=== PATIENT | female | born 1955 | race Caucasian/White ===

== ENCOUNTER 2017-06-25 05:24 | Inpatient (IN) ==
[2017-06-25 05:46] VITALS: BMI 29.7
[2017-06-25] MEDS ORDERED: DEXAMETHASONE 4 MG/ML INJECTION IVP ONE (06:00)
[2017-06-25] MEDS ORDERED: ACETAMINOPHEN 500 MG TABLET PO ONE (06:00)
[2017-06-25] MEDS ORDERED: TRANEXAMIC ACID 1,000 MG in NS 100 ML IV ONE ×2 (06:00→07:00)
[2017-06-25] MEDS ORDERED: LIDOCAINE 1% (10mg/ml) 2mL INJ PF SDV ID ONE (06:00)
[2017-06-25] MEDS ORDERED: MELOXICAM 15 MG TABLET PO ONE (06:00)
[2017-06-25] MEDS ORDERED: ONDANSETRON 4 MG/2 ML INJECTION IVP ONE (06:00)
[2017-06-25] MEDS ORDERED: METOCLOPRAMIDE 10mg/2ml INJECTION IVP ONE (06:00)
[2017-06-25] MEDS ORDERED: FAMOTIDINE PB 20 MG/50 ML BAG IV ONE (06:00)
[2017-06-25] MEDS: LR 1,000 ML IV SCH ×2 (06:10→08:47)
[2017-06-25] MEDS: NOZIN NASAL SWAB NAS SCH ×5 (06:14→21:00)
[2017-06-25] MEDS ORDERED: VANCOMYCIN 1,000 MG INJECTION ONE (06:17)
[2017-06-25] MEDS ORDERED: CEFAZOLIN 1 G INJECTION IVP ONE (06:21)
[2017-06-25] MEDS ORDERED: PROPOFOL 500 MG/50 ML VIAL ONE ×2 (06:53→08:11)
--- NOTE | 2017-06-25 07:07 | Anesthesia Preoperative Report ---
Anesthesia Preoperative Record - Date and Time Date: 06/25/17 Preoperative Diagnosis: Lt TKA M17.12 Proposed Procedure: TKA robot NPO Since Date: 06/25/17 NPO Since Time: 06:00 Allergies/Adverse Reactions: Allergies Allergy/AdvReac Type Severity Reaction Status Date / Time Sulfa (Sulfonamide Allergy Intermediate HIVES Verified 06/25/17 05:57 Antibiotics) - Vital Signs Vital Signs: Temperature 97.6 F 06/25/17 05:45 Pulse Rate 58 L 06/25/17 06:20 Respiratory Rate 14 06/25/17 05:45 Blood Pressure 143/83 H 06/25/17 05:45 Pulse Oximetry 95 06/25/17 05:45 Height and Weight: Height 1.69 m Weight 85 kg Body Mass Index 29.7 - Medications Inpatient Medications: Current Medications Lactated Ringer's (Lactated Ringers) 1,000 mls @ 50 mls/hr IV .Q20H [facility] Last Admin: 06/25/17 06:10 Dose: 50 mls/hr Epinephrine HCl 0.25 mg/Bupivacaine HCl 30 ml/Ketorolac Tromethamine 60 mg/ Sodium Chloride 62.25 mls @ 0 mls/hr OPSITE INTRAOP ONE; Per Protocol PRN Reason: Protocol Stop: 06/25/17 08:01 Tranexamic Acid 1,000 mg/ (Sodium Chloride) 110 mls @ 660 mls/hr IV INTRAOP ONE Stop: 06/25/17 07:09 Isopropyl Alcohol (Nozin Nasal Swab) 1 each CHUCHO Q1M [facility] Stop: 06/25/17 14:33 Last Admin: 06/25/17 06:26 Dose: 1 each Sodium Chloride (Iv Flush) 10 - 80 ml IV PRN PRN PRN Reason: [place] Home Medications: Home Medications Medication Instructions Recorded Confirmed Type ergocalciferol (vitamin D2) 50,000 50,000 unit PO DAILY #2 cap 06/02/17 Rx unit capsule Aspirin *EC* [Ecotrin] 1 tab PO 1200 06/11/17 06/24/17 History Atorvastatin Calcium [Atorvastatin 10 mg PO HS 06/11/17 06/25/17 History Calcium] Cartilage/Collagen/Bor/Hyalur 1 each PO DAILY 06/11/17 06/25/17 History [Joint Health Tablet] Cetirizine HCl [Zyrtec] 1 tab PO DAILY PRN 06/11/17 06/25/17 History Fluticasone Nasal [place] [Flonase] 1 spray EA NOSTRIL DAILY PRN 06/11/17 History Ibuprofen [Advil] 200 - 600 mg PO Q4H PRN 06/11/17 06/24/17 History Lactobacillus Acidophilus 1 each PO DAILY 06/11/17 06/25/17 History [Probiotic] Metoprolol Succinate [Metoprolol 25 mg PO DAILY 06/11/17 06/25/17 History Succinate] Multivitamin [Multivitamins] 1 each PO DAILY 06/11/17 06/25/17 History [place]-3/Dha/Epa/Fish Oil [Fish Oil 1 each PO DAILY 06/11/17 06/24/17 History 1,000 mg Softgel] Is Patient on Beta Yordy?: No - Medical History Respiratory: DENIES: Sleep Apnea Cardiovascular: Reports: Hypertension, High Cholesterol Gastrointestional: Reports: Gastroesophageal Reflux Disease Neuro/Musculoskeletal: Reports: HX.MS.OSAR, Back Problems - Surgical History GI Surgery/Treatments: Reports: Colonoscopy (x3; hx polyps), EGD - Social History Smoking Status: Current every day smoker Packs per day: 0.5 Pack-years: 30 Hx Chewing Tobacco Use: No Second Hand Exposure: No Substance Use Type: does not use Alcohol Intake Frequency: holidays/special occasions only - Pertinent Findings EKG: Sinus Bradycardia - Physical Exam Respiratory Exam: Present: lungs clear Cardiovascular Exam: Present: regular rate and rhythm, no murmur - Airway Assessment Mallampati Score: I TMD: 3 Fingerbreadths Neck Extension: good Teeth: chipped teeth/crowns Overall Assessment: no airway concerns - ASA ASA Score: 2 - Plan Regional/Trunk Block: Spinal - Discussion Discussion: Discussed risks/options/alternatives of anesthesia and questions answered. Patient consents. Nursing pain assessment noted. Present for Discussion: family member Attestation Statement: Prior to the delivery of any anesthetic medication, I examined the patient, developed the plan, obtained the patient's consent and discussed the risk and benefits of the procedure with the patient/guardian. - Additional Information Seen by Anesthesia: Yes
[2017-06-25] MEDS ORDERED: MIDAZOLAM 2mg/2ml INJECTION ONE (07:21)
[2017-06-25] MEDS ORDERED: GLYCOPYRROLATE 0.4 MG/2 ML INJECTION ONE (07:21)
[2017-06-25] MEDS ORDERED: LIDOCAINE 2% (100mg/5mL) 5ml PF SDV ONE (07:39)
[2017-06-25] MEDS ORDERED: EPINEPHrine PF 0.25 MG, BUPIVACAINE 0.25% PF 30 ML, KETOROLAC INJ 60 MG in NS 30 ML OPSITE ONE (08:00)
[2017-06-25] MEDS ORDERED: SALINE FLUSH 10ml SYRINGE ONE (08:01)
[2017-06-25] MEDS ORDERED: PHENYLEPHRINE INJ 10 MG/ML VIAL IV ONE (08:01)
[2017-06-25] MEDS ORDERED: EPHEDRINE 50mg/ml INJECTION ONE (08:50)
--- NOTE | 2017-06-25 09:24 | Operative Note ---
- Procedure Preoperative Diagnosis: Left knee primary degenerative joint disease Postoperative Diagnosis: Same as preoperative diagnosis. Surgeon: Jazmin Baer MD Ammonia Still Operator: Roderick Viera Complications: None. Anesthesia: Spinal. Estimated Blood Loss: See Anesthesia Record. Fluids: Please see Anesthesia Record. Description of Procedure: Mrs. Orlando and her left knee were identified and marked in the preoperative holding area. She was brought back to the operating suite. Spinal anesthetic was administered and she was placed supine on the operating table. The left lower extremity was prepped and draped in my normal sterile fashion. Timeout was performed. The [employer] robotic arm was used during the surgery. She had a fixed varus deformity. A standard anterior midline incision followed by medial parapatellar arthrotomy was performed. Anterior fat pad and meniscus were removed. The patella was everted and a patella osteotomy was performed leaving 13mm of bone. Tibial and femoral arrays and checkpoints were placed both within the original incision. The bone was then registered with the Mi[employer] robot. Osteophytes were removed and gaps were captured both 90 and 0 degrees with correction. She had good extension so we left her extension gap at 17 mm and used 18 mm in flexion. The [employer] robotic arm was then used to assist with the bone cuts. Posterior osteophytes and remaining meniscus were removed. Trial components were placed. We used a 4 femur and a oh tibia with a 9 mm spacer and a 32 patella. She tracked well and was well balanced throughout range of motion. The leg was exsanguinated and the tourniquet inflated to 250 mmHg. The tibia was stamped. The bone was prepared for cementing and components were cemented into place and allowed to cure in extension. The tourniquet was let down and hemostasis obtained with electrocautery. The knee was ranged one more time to ensure good stability, balance and patellar tracking. 1 g of vancomycin powder was then placed into the knee joint. The capsulotomy was then closed with #1 Vicryl. I then left my assistant professor of geography to close the subcutaneous tissue with 2-0 Vicryl. Running 4-0 Monocryl will be used in the subcuticular layer. Dermabond will be used on the skin followed by sterile dressing. After drapes are removed patient will be taken to recovery room under the care of anesthesia.
--- NOTE | 2017-06-25 10:15 | Anesthesia Postoperative Note ---
- Date and Time Date: 06/25/17 Time: 10:15 - Status Patient Participated in Evaluation: Patient Participated in Person Vital Signs: Temperature 97.4 F 06/25/17 09:34 Pulse Rate 73 06/25/17 09:34 Respiratory Rate 18 06/25/17 09:34 Blood Pressure 100/84 06/25/17 09:34 Pulse Oximetry 93 06/25/17 09:34 Respiratory Function: Airway Patent Cardiovascular Function: Regular Pulse EKG: Sinus Rhythm Mental Status: Alert and Oriented Pain Intensity: 0 Hydration: Taking PO Fluids Complications During Recover: None Apparent - Follow-Up Instructions Instructions: Per Surgeon
--- NOTE | 2017-06-25 10:15 | Anesthesia Procedure Note ---
Peripheral Nerve Blockade - Procedure Physician: Porfirio Baer MD Date: 06/25/17 Surgical Procedure: robot assist TKA Discussion: Discussed risks/options/alternatives of anesthesia and questions answered. Patient consents. Nursing pain assessment noted. Block Start: 09:40 Block Stop: 09:42 Blocked Employed: Adductor Canal Indication: Post-Operative Pain Approach: Left Side Confirmed Position: Supine Patient: Consent, Risks/Benefits Discussed, Informed, Post Block Act. Discussed IV Sedation: No Initial Vital Signs: Temperature 97.6 F 06/25/17 05:45 Temperature Source Oral 06/25/17 05:45 Pulse Rate 66 06/25/17 05:45 Respiratory Rate 14 06/25/17 05:45 Blood Pressure 143/83 H 06/25/17 05:45 Blood Pressure Mean 103 06/25/17 05:45 Blood Pressure Position Sitting 06/25/17 05:45 Pulse Oximetry 95 06/25/17 05:45 Oxygen Delivery Method 06/25/17 05:45 Post Vital Signs: Temperature 97.4 F 06/25/17 09:34 Pulse Rate 73 06/25/17 09:34 Respiratory Rate 18 06/25/17 09:34 Blood Pressure 100/84 06/25/17 09:34 Pulse Oximetry 93 06/25/17 09:34 Initial Pain Pain Score: 0 Post Block Pain Score: 0 Prep: Chlorhexadine/ETOH Ultrasound Used?: Yes - Injectate Bupivacaine (%): 0.5 Bupivacaine (mL): 20 Was Epi 1:200,000 Used?: No Injection: Injection made incrementally with constant monitoring and aspiration every ml
--- NOTE | 2017-06-25 10:31 | XRay Report ---
Indication: postoperative image PROCEDURE: XR knee LT 2V: Encounter: Initial Comparison: May 20, 2017 Findings: Postoperative changes of left total knee replacement are seen. There is expected postoperative subcutaneous gas. No evidence of hardware failure or acute fracture. No retained radiopaque surgical instruments or sponges. Overlying material causing artifact. Impression: New left total knee prosthesis without evidence of immediate complication. .
[2017-06-25] MEDS ORDERED: CETIRIZINE 10 MG TABLET PO PRN (10:32)
[2017-06-25] MEDS ORDERED: DiphenhydrAMINE 25 MG CAPSULE PO PRN (10:32)
[2017-06-25] MEDS ORDERED: ONDANSETRON 4 MG/2 ML INJECTION IVP PRN (10:32)
[2017-06-25] MEDS ORDERED: DiphenhydrAMINE 50 MG/ML INJECTION IVP PRN (10:32)
[2017-06-25] MEDS ORDERED: LORazepam 1 MG TABLET PO PRN (10:32)
[2017-06-25] MEDS ORDERED: IBUPROFEN 200 MG TABLET PO PRN (10:32)
[2017-06-25] MEDS ORDERED: NOZIN NASAL SWAB NAS ONE (10:32)
[2017-06-25] MEDS: NS 1,000 ML IV SCH ×2 (10:47→22:49)
[2017-06-25] MEDS: ACETAMINOPHEN 325 MG TABLET PO SCH ×3 (12:38→20:59)
[2017-06-25] MEDS: TRAMADOL 50 MG TABLET PO PRN (14:22)
[2017-06-25] MEDS ORDERED: SALINE FLUSH 10ml SYRINGE IV PRN (14:24)
[2017-06-25] MEDS: CEFAZOLIN 2 G in NS 50 ML IV SCH ×2 (16:26→22:48)
[2017-06-25] MEDS: ASPIRIN *EC* 81 MG TABLET PO SCH (20:59)
[2017-06-25] MEDS: DOCUSATE SODIUM 100 MG CAPSULE PO SCH (21:00)
[2017-06-25] MEDS ORDERED: ATORVASTATIN 20 MG TABLET PO SCH (21:00)
[2017-06-25] MEDS ORDERED: SENNOSIDES 8.6 MG TABLET PO SCH (21:00)
[2017-06-26] MEDS: TRAMADOL 50 MG TABLET PO PRN ×3 (03:22→13:06)
[2017-06-26] MEDS: NOZIN NASAL SWAB NAS SCH (05:08)
[2017-06-26] MEDS: ACETAMINOPHEN 325 MG TABLET PO SCH ×2 (08:55→13:06)
[2017-06-26] MEDS: DOCUSATE SODIUM 100 MG CAPSULE PO SCH (08:55)
[2017-06-26] MEDS: ASPIRIN *EC* 81 MG TABLET PO SCH (08:55)
[2017-06-26] MEDS ORDERED: POLYETHYL GLYCOL 3350 17gm PACKET PO SCH (09:00)
[2017-06-26] MEDS ORDERED: OMEGA-3 ACID ESTERS 1 GM CAPSULE PO SCH (09:00)
--- NOTE | 2017-06-26 09:17 | Orthopedic Progress Note ---
Date: Date: 06/26/17 Time: 912 Subjective/Severity of Illness: Elizabeth is up ambulating in her room when I visit this morning, tolerating well. Her pain has been well controlled with Tramadol overnight. Denies CP, SOA, Nausea. Tolerating PO well. Orthopedic Exam Vital signs: Temperature 96.6 F L 06/26/17 07:46 Pulse Rate 61 06/26/17 07:46 Respiratory Rate 16 06/26/17 07:46 Blood Pressure 129/70 06/26/17 07:46 Pulse Oximetry 95 06/26/17 07:46 - Constitutional General Appearance: Present: alert, orientated x3, cooperative, well developed, well nourished - Respiratory Exam Present: CTA bilaterally, non-labored - Cardiovascular Exam Present: Regular Rate/Rhythm, pedal pulses intact - Extremities Exam Present: pulses intact. Absent: calf tenderness Comments: Normal postoperative swelling of right knee. - Dressing Dressing: dry, intact, no drainage Comments: mepilex dressing intact left knee. - Integumentary Exam Present: pink, warm, dry - Neurological Exam Present: intact to light touch, no deficits - Psychiatric Exam Present: alert, oriented, normal affect - Labs Result Diagrams: 06/26/17 04:18 06/26/17 04:18 Abnormal lab results 06/26/17 06/26/17 Range/Units 04:18 04:18 Hgb 10.1 L (12-16) GM/DL Creatinine 0.6 L (0.7-1.2) mg/dL H & H 06/26/17 Range/Units 04:18 Hgb 10.1 L (12-16) GM/DL Orthopedic Assessment and Plan (1) Primary osteoarthritis of left knee Status: Acute Assessment and Plan: Current anti-coagulation protocol with ASA 81mg BID x6 weeks for VTE prophylaxis. SCD's for added protection. PT/OT services to improve independent function. Anticipate discharge home today with PT at [facility] Discharge Planning per Case Management. - Anticoagulation Therapy Anticoagulation: ASA 81 mg PO BID x6 weeks Hospital Course Summary Disclaimer: The visit summary below is not to be considered part of the above Progress Note.
[2017-06-26] MEDS ORDERED: SENNOSIDES 8.6 MG TABLET PO PRN (09:28)
[2017-06-26 12:20] VITALS: BP 105/65; PULSE 56; RESP 14; TEMP 98.5; O2SAT 97
--- NOTE | 2017-06-26 12:21 | Discharge Summary ---
Orthopedic Discharge Info Date of admission: 06/25/17 05:24 Anticipated date of discharge: 06/26/17 Primary care physician: Heena Calderon MD Attending Physician: Porfirio Baer MD Consults: 06/25/17 05:36 Consult to Anesthesiology [CONS] Routine Reason For Exam: Preoperative Assessment 06/25/17 10:32 Case Management Consult [CONS] Routine Reason For Exam: Discharge Planning DME-Walker [CONS] Routine Height: 5 ft 6.5 in Weight: 85 kg Total Joint Outpatient Therapy [CONS] Routine Comment: Remove dressing in 2 weeks - Discharge Diagnosis (1) Primary osteoarthritis of left knee Status: Acute - Laboratory Result Diagrams: 06/26/17 04:18 06/26/17 04:18 Laboratory: Abnormal lab results 06/26/17 06/26/17 Range/Units 04:18 04:18 Hgb 10.1 L (12-16) GM/DL Creatinine 0.6 L (0.7-1.2) mg/dL H & H 06/26/17 Range/Units 04:18 Hgb 10.1 L (12-16) GM/DL Orthopedic Discharge HPI - HPI Comments This patient was admitted for elective surgical tx of end stage degenerative joint disease that failed to respond to conservative treatment. Further details of this is found in the admission H&P. Orthopedic Hospital Course Hospital course: 06/26/17 12:19 After appropriate preoperative clearance and signing of operative consent, the patient was given IV antibiotics, according to orthopedic protocol. The patient was taken to the operating room and underwent elective joint arthroplasty. Following surgery, antibiotics were discontinued less than 24 hours according to joint protocol. Appropriate anticoagulants were initiated and SCDs added for DVT prevention. The dressing was clean, dry, and intact. Pain control was obtained via multimodal approach. Bowel motivation addressed with scheduled and PRN medications. Early mobilization was initiated through PT services. Discharge arrangements made by a collaborative effort between the patient and Case Management. Follow-up is scheduled in 2-3 weeks. Discharge instructions given by orthopedic providers and nursing staff at discharge. Discharged home, stable in good condition. Care extended to > 2 midnight stays?: No Discharge Plan - Med Rec/Dispo Referrals/Follow Up: Zulma Post APRN [Advanced Practice Nurse] - 07/20/17 11:30 am Porfirio Baer MD [Physician] - [facility] Instructions: [facility] Postop Instructions Additional Instructions: [facility] ON 06/30/2017 AT 10:45AM FOR PHYSICAL THERAPY MIGUEL. PHONE , OPTION 3 Prescriptions: New Bisacodyl Supp [Dulcolax] 10 mg RECTALLY DAILY suppositor Docusate Sodium [Colace] 100 mg PO BID cap Milk of Magnesia [Mom] 30 ml PO DAILY udc PEG 3350 17gm PACKET [Miralax] 17 gm PO DAILY packet Sennosides [Senna Lax] 17.2 mg PO DAILY PRN tab PRN Reason: Constipation Tramadol [Ultram] 50 - 100 mg PO Q6H PRN tab PRN Reason: Pain Aspirin *EC* [Ecotrin] 81 mg PO BID tab Acetaminophen [Tylenol] 650 mg PO QID tab Continue Cartilage/Collagen/Bor/Hyalur [Joint Health Tablet] 1 each PO DAILY [place]-3/Dha/Epa/Fish Oil [Fish Oil 1,000 mg Softgel] 1 each PO DAILY Lactobacillus Acidophilus [Probiotic] 1 each PO DAILY Fluticasone Nasal [place] [Flonase] 1 spray EA NOSTRIL DAILY PRN PRN Reason: Allergy Symptoms Cetirizine HCl [Zyrtec] 1 tab PO DAILY PRN PRN Reason: Allergy Symptoms Multivitamin [Multivitamins] 1 each PO DAILY Atorvastatin Calcium 10 mg PO HS Ibuprofen [Advil] 200 - 600 mg PO Q4H PRN PRN Reason: Pain Metoprolol Succinate 25 mg PO DAILY ergocalciferol (vitamin D2) 50,000 unit capsule 50,000 unit PO DAILY #2 cap Discontinued Aspirin *EC* [Ecotrin] 1 tab PO 1200 - Disposition 01 Discharged Home, Self-Care - Dismissal Complete Discharge Instructions are:: Complete
[2017-06-27] MEDS ORDERED: BISACODYL 10 MG SUPPOSITORY RECTALLY SCH (20:00)
== END 2017-06-26 13:25 | disposition home or self-care (01) | DRG 470 ==
LOC: NMC.PERIOP 05:24 → SRG 10:35
PROVIDERS: ADMIT Orthopaedic Surgery; ATTEND Orthopaedic Surgery

== ENCOUNTER 2017-09-08 06:46 | Inpatient (IN) ==
[~2017-09-08 06:46] MED LIST: ACETAMINOPHEN 500 MG TABLET PO ONE; DEXAMETHASONE 4 MG/ML INJECTION IVP ONE; FAMOTIDINE PB 20 MG/50 ML BAG IV ONE; LIDOCAINE 1% (10mg/ml) 2mL INJ PF SDV ID ONE; METOCLOPRAMIDE 10mg/2ml INJECTION IVP ONE; ONDANSETRON 4 MG/2 ML INJECTION IVP ONE; TRANEXAMIC ACID 1,000 MG in NS 100 ML IV ONE
[2017-09-08] MEDS ORDERED: TRANEXAMIC ACID 1,000 MG in NS 100 ML IV ONE (07:00)
[2017-09-08] MEDS: LR 1,000 ML IV SCH ×2 (07:25→10:26)
[2017-09-08] MEDS: NOZIN NASAL SWAB NAS SCH ×6 (07:31→21:25)
[2017-09-08] MEDS ORDERED: VANCOMYCIN 1,000 MG INJECTION ONE (07:39)
--- NOTE | 2017-09-08 07:56 | Anesthesia Preoperative Report ---
Anesthesia Preoperative Record - Date and Time Date: 09/08/17 Preoperative Diagnosis: Rt MORGAN M16.11 Proposed Procedure: Right MORGAN NPO Since Date: 09/07/17 NPO Since Time: 23:00 Allergies/Adverse Reactions: Allergies Allergy/AdvReac Type Severity Reaction Status Date / Time Sulfa (Sulfonamide Allergy Intermediate HIVES Verified 09/08/17 07:24 Antibiotics) - Vital Signs Vital Signs: Temperature 97.9 F 09/08/17 06:59 Pulse Rate 60 09/08/17 06:59 Respiratory Rate 14 09/08/17 06:59 Blood Pressure 131/82 09/08/17 06:59 Pulse Oximetry 96 09/08/17 06:59 Height and Weight: Height 5 ft 6 in Weight 86 kg Body Mass Index 30.6 - Medications Inpatient Medications: Current Medications Cefazolin Sodium (Kefzol 1 Gm Vial) 2 g IVP PREOP ONE Stop: 09/08/17 08:31 Epinephrine HCl 0.25 mg/Bupivacaine HCl 30 ml/Ketorolac Tromethamine 60 mg/ Sodium Chloride 62.25 mls @ 1 mls/hr OPSITE INTRAOP ONE PRN Reason: Protocol Stop: 09/10/17 22:14 Lactated Ringer's (Lactated Ringers) 1,000 mls @ 50 mls/hr IV .Q20H [facility] Last Admin: 09/08/17 07:25 Dose: 50 mls/hr Isopropyl Alcohol (Nozin Nasal Swab) 1 each CHUCHO Q1M [facility] Stop: 09/08/17 09:18 Last Admin: 09/08/17 07:35 Dose: 1 each Sodium Chloride (Iv Flush) 10 - 80 ml IV PRN PRN PRN Reason: [place] Home Medications: Home Medications Medication Instructions Recorded Confirmed Type Atorvastatin Calcium 10 mg PO HS 06/11/17 09/08/17 History Cartilage/Collagen/Bor/Hyalur 1 each PO DAILY 06/11/17 09/08/17 History [Joint Health Tablet] Cetirizine HCl [Zyrtec] 1 tab PO DAILY 06/11/17 09/08/17 History Fluticasone Nasal [place] [Flonase] 1 spray EA NOSTRIL DAILY 06/11/17 09/08/17 History Ibuprofen [Advil] 200 - 600 mg PO Q4H PRN 06/11/17 09/08/17 History Lactobacillus Acidophilus 1 each PO DAILY 06/11/17 09/08/17 History [Probiotic] Metoprolol Succinate 25 mg PO DAILY 06/11/17 09/08/17 History Multivitamin [Multivitamins] 1 each PO DAILY 06/11/17 09/08/17 History [place]-3/Dha/Epa/Fish Oil [Fish Oil 1 each PO DAILY 06/11/17 09/08/17 History 1,000 mg Softgel] Acetaminophen [Tylenol] 650 mg PO QID PRN 09/02/17 09/08/17 History Pantoprazole Tab [Protonix Tab] 40 mg PO PRN PRN 09/02/17 09/08/17 History Aspirin *EC* [Ecotrin] 81 mg PO DAILY 09/08/17 09/08/17 History Cholecalciferol (Vitamin D3) 1 tab PO DAILY 09/08/17 09/08/17 History [Vitamin D3] Is Patient on Beta Yordy?: Yes Beta Yordy Last Dose Date/Time: 09/08/17 0600 - Medical History Respiratory: DENIES: Asthma, Bronchitis, Chronic Obstructive Pulmonary Disease (COPD), Dyspnea, Orthopnea, Pulmonary Embolism, Pneumonia, Upper Respiratory Infection, Pulmonary Edema, Sleep Apnea, Tuberculosis, Other Cardiovascular: Reports: Hypertension, High Cholesterol, Other (mixed hyperlipidemia) DENIES: Abnormal EKG, Angina, Arrhythmia, Congestive Heart Failure, Coronary Artery Disease, Heart Murmur, Hypotension, Myocardial Infarction, Rheumatic Fever, Valvular Heart Disease Gastrointestional: Reports: Gastroesophageal Reflux Disease (takes med prn) DENIES: Obstructive Bowel, Hepatitis, Cirrhosis, Nausea or Vomiting Present, Gastrointestinal Bleeding, Hiatal Hernia, Ulcer, Morbid Obesity, Other Neuro/Musculoskeletal: Reports: Back Problems Denies: Cerebrovascular Accident, Depression, Headaches, Loss of Consciousness, Muscle Weakness, Neuromuscular Disorder, Paralysis, Paresthesia, Syncope, Seizures, Other Renal/Endocrine: DENIES: Diabetes Mellitus Type 1, Diabetes Mellitus Type 2, Renal Failure, Dialysis, Thyroid Disease, Weight Loss, Weight Gain, Other Other History: DENIES: Anesthesia Reactions, Now, Blood Transfusions, Chemotherapy , Cancer, Hemophilia, Malignant Hyperthermia, Sickle Cell Disease, Other - Surgical History HEENT Surgeries: Reports: Eye Surgery (blepharoplasty) GI Surgery/Treatments: Reports: Colonoscopy (x3; hx polyps), EGD Musculoskeletal Surgery/Tx: Reports: Total Knee Replacement (Lt TKA ) Anesthesia Reactions: None Hx Family Anesthesia Reaction: No History of Motion Sickness: No - Social History Smoking Status: Current every day smoker Packs per day: 1 (smoked last PM) Pack-years: 30 Hx Chewing Tobacco Use: No Second Hand Exposure: No Substance Use Type: does not use Alcohol Intake: current Alcohol Intake Frequency: a few times a month - Pertinent Findings EKG: Sinus Bradycardia - Physical Exam Respiratory Exam: Present: bilateral breath sounds equal, other (coarse) Cardiovascular Exam: Present: regular rate and rhythm, no murmur - Airway Assessment Mallampati Score: I TMD: 3 Fingerbreadths Overall Assessment: no airway concerns - ASA ASA Score: 2 - Plan Anesthesia: Neuroaxial Regional/Trunk Block: Spinal - Discussion Discussion: Discussed risks/options/alternatives of anesthesia and questions answered. Patient consents. Nursing pain assessment noted. Present for Discussion: friend Attestation Statement: Prior to the delivery of any anesthetic medication, I examined the patient, developed the plan, obtained the patient's consent and discussed the risk and benefits of the procedure with the patient/guardian. - Additional Information Seen by Anesthesia: Yes
[2017-09-08] MEDS ORDERED: EPINEPHrine PF 0.25 MG, BUPIVACAINE 0.25% PF 30 ML, KETOROLAC INJ 60 MG in NS 30 ML OPSITE ONE (08:00)
[2017-09-08] MEDS ORDERED: ANESTHESIA MIXTURE 50 ML IV ONE (08:15)
[2017-09-08] MEDS ORDERED: CEFAZOLIN 1 G INJECTION IVP ONE (08:30)
[2017-09-08] MEDS ORDERED: FentaNYL 100 MCG/2 ML INJECTION IVP ONE (09:00)
[2017-09-08] MEDS ORDERED: MIDAZOLAM 2mg/2ml INJECTION IVP ONE (09:00)
[2017-09-08] MEDS ORDERED: PROPOFOL 200 MG/20 ML INJECTION IVP ONE ×2 (09:00)
[2017-09-08] MEDS ORDERED: BUPIVACAINE 0.75%/DEXTROSE 8.5% SPINAL 2 ML AMPULE IJ ONE (09:00)
[2017-09-08] MEDS ORDERED: SALINE FLUSH 10ml SYRINGE IV ONE (09:00)
[2017-09-08] MEDS ORDERED: SALINE FLUSH 10ml SYRINGE IV PRN (09:07)
[2017-09-08] MEDS ORDERED: VANCOMYCIN 1,000 MG INJECTION IAR ONE (09:37)
--- NOTE | 2017-09-08 11:06 | Operative Note ---
- Procedure Preoperative Diagnosis: Right hip primary degenerative joint disease Postoperative Diagnosis: Same as preoperative diagnosis. Surgeon: Jazmin Baer MD Energy Trading Analyst: Roderick Viera Complications: None. Anesthesia: Spinal. Estimated Blood Loss: See Anesthesia Record. Fluids: Please see Anesthesia Record. Description of Procedure: Mrs. Orlando and her right hip were identified and marked in the preoperative holding area. She was brought back to the operating suite and spinal anesthetic was administered. She was then placed in a lateral decubitus position with her right hip up. The right lower extremity was prepped and draped in my normal sterile fashion. Timeout was performed. The [employer] robotic arm was used to assist with the surgery. A pelvic array was placed into the iliac crest through three small incisions. A direct superior approach was utilized. An approximately 13 cm incision was made in the skin and dissection carried down to the muscle fascia which was then split in line with skin incision. The short external rotators were identified and tagged and detached. A capsulotomy was performed and the hip dislocated. A femoral neck osteotomy was performed at the pre-templated level measuring down from the femoral head 52mm. The head was removed and acetabulum exposed. Labrum was removed. The acetabulum was then registered with the robot. The robotic arm was then used to ream with a 49 reamer. The robot then was again used to place a 50 Trident cup in 40 of tilt and 25 of anteversion. A liner was then placed. The proximal femur was exposed and prepared with a cookie cutter followed by reaming and broaching to a size 3. We trialed with a standard head. During reduction the femoral head did catch on the posterior acetabular lip and this dislodged the acetabular cup. The femoral stem was removed as well as the previous cup. We reamed again with a 51 basket and placed a 52 cup in 20 of anteversion and 40 of tilt. A liner was again placed. We then replaced the 3 trial stem with 127 neck with a +7.5 head. This felt good she was very stable she was still 6 mm short compared to her opposite hip, but there was not enough plate to increase her length anymore. After thorough irrigation a final Accolade 2 size 3 stem with and 27 neck was placed. Leg length and offset were checked with the robot and were good. A final +7.5 head was placed and the hip reduced. Betadine solution was used to irrigate throughout the case. It was followed by normal saline irrigation. Joint cocktail was injected throughout soft tissue. The capsulotomy was repaired with Ethibond. Short external rotators were also repaired with Ethibond. 1 g of vancomycin powder was placed into the wound. The muscle fascia was then repaired with #1 Vicryl. I then left my contract administrative assistant to close the subcutaneous tissue with 2-0 Vicryl followed by running 4-0 Monocryl skin followed by Dermabond and a sterile dressing. The patient with any placed back into supine position and taken to recovery room in the care of anesthesia.
--- NOTE | 2017-09-08 12:06 | XRay Report ---
Indication: postoperative image PROCEDURE: XR pelvis w/ 1 view RT hip: Encounter: Initial Comparison: August 31, 2017 Findings: Postoperative changes of right total hip replacement are seen. There is expected postoperative subcutaneous gas. No evidence of hardware failure or acute fracture. No retained radiopaque surgical instruments or sponges seen. Impression: New right total hip prosthesis without evidence of immediate complication. .
[2017-09-08] MEDS ORDERED: LORazepam 1 MG TABLET PO PRN (12:10)
[2017-09-08] MEDS ORDERED: PANTOPRAZOLE 40 MG TABLET PO PRN (12:10)
[2017-09-08] MEDS ORDERED: DiphenhydrAMINE 50 MG/ML INJECTION IVP PRN (12:10)
[2017-09-08] MEDS ORDERED: ONDANSETRON 4 MG/2 ML INJECTION IVP PRN (12:10)
[2017-09-08] MEDS ORDERED: NOZIN NASAL SWAB NAS ONE (12:10)
[2017-09-08] MEDS ORDERED: DiphenhydrAMINE 25 MG CAPSULE PO PRN (12:10)
[2017-09-08] MEDS ORDERED: Oxycodone *IR* 5 MG TABLET PO PRN (12:10)
[2017-09-08 12:19] VITALS: BMI 31.5
[2017-09-08] MEDS: NS 1,000 ML IV SCH (12:46)
[2017-09-08] MEDS: ACETAMINOPHEN 325 MG TABLET PO SCH ×3 (13:15→20:55)
[2017-09-08] MEDS: IBUPROFEN 200 MG TABLET PO SCH ×2 (13:15→18:06)
[2017-09-08] MEDS: SALINE FLUSH 10ml SYRINGE IV PRN ×2 (14:12→15:55)
--- NOTE | 2017-09-08 14:28 | Anesthesia Postoperative Note ---
- Date and Time Date: 09/08/17 Time: 11:30 - Status Patient Participated in Evaluation: Patient Participated in Person Vital Signs: Temperature 97.1 F 09/08/17 12:00 Pulse Rate 49 L 09/08/17 13:15 Respiratory Rate 24 09/08/17 12:00 Blood Pressure 133/71 09/08/17 13:15 Pulse Oximetry 99 09/08/17 13:15 Respiratory Function: Airway Patent, Regular Respirations Cardiovascular Function: Regular Pulse EKG: Sinus Rhythm Mental Status: Alert and Oriented Pain Intensity: 0 Hydration: Taking PO Fluids Complications During Recover: None Apparent - Follow-Up Instructions Instructions: Per Surgeon
[2017-09-08] MEDS ORDERED: DEXAMETHASONE 20 MG/5 ML INJECTION IVP ONE (15:00)
[2017-09-08] MEDS: CEFAZOLIN 2 G in NS 100 ML IV SCH (15:58)
[2017-09-08] MEDS: TRAMADOL 50 MG TABLET PO PRN (18:10)
[2017-09-08] MEDS: ASPIRIN *EC* 81 MG TABLET PO SCH (20:54)
[2017-09-08] MEDS: DOCUSATE SODIUM 100 MG CAPSULE PO SCH (20:54)
[2017-09-08] MEDS ORDERED: ATORVASTATIN 10 MG TABLET PO SCH (21:00)
[2017-09-08] MEDS ORDERED: SENNOSIDES 8.6 MG TABLET PO SCH (21:00)
[2017-09-09] MEDS: IBUPROFEN 200 MG TABLET PO SCH ×3 (00:33→12:30)
[2017-09-09] MEDS: CEFAZOLIN 2 G in NS 100 ML IV SCH (00:33)
[2017-09-09] MEDS: NS 1,000 ML IV SCH ×2 (03:54→12:57)
[2017-09-09] MEDS: NOZIN NASAL SWAB NAS SCH (06:38)
[2017-09-09 07:52] VITALS: RESP 16
--- NOTE | 2017-09-09 08:00 | Orthopedic Progress Note ---
Date: Date: 09/09/17 Time: 751 Subjective/Severity of Illness: Elizabeth is doing very well. Denies much pain. She has been up with good tolerance. Pulses have been running 40-50's. Pt was lightheaded the first time she was up but not since then. Dressing dry. Labs look good. Pt is expecting discharge later today. Orthopedic Exam Vital signs: Temperature 96.1 F L 09/09/17 07:51 Pulse Rate 47 L 09/09/17 07:51 Respiratory Rate 16 09/09/17 07:51 Blood Pressure 118/64 09/09/17 07:51 Pulse Oximetry 98 09/09/17 07:51 - Constitutional General Appearance: Present: alert, cooperative, no acute distress - Respiratory Exam Present: non-labored - Cardiovascular Exam Present: pedal pulses intact Capillary Refill: < 2-3 Seconds - Extremities Exam Present: pulses intact. Absent: calf tenderness - Dressing Dressing: dry, intact, no drainage - Integumentary Exam Present: pink, warm, dry, intact - Neurological Exam Present: intact to light touch, no deficits - Psychiatric Exam Present: alert, normal affect - Labs Result Diagrams: 09/09/17 04:02 09/09/17 04:02 Abnormal lab results 09/09/17 09/09/17 Range/Units 04:02 04:02 Hgb 11.1 L (12-16) GM/DL Creatinine 0.5 L (0.7-1.2) mg/dL Glucose 125 H (65-110) MG/DL H & H 09/09/17 Range/Units 04:02 Hgb 11.1 L (12-16) GM/DL Orthopedic Assessment and Plan (1) Primary osteoarthritis of right hip Status: Acute Assessment and Plan: Aspirin protocol for VTE prophylaxis. SCD's for added DVT coverage. PT/OT services to improve independent function. Discharge Planning per Case Management. - Anticoagulation Therapy Anticoagulation: ASA 81 mg PO BID x6 weeks Hospital Course Summary Disclaimer: The visit summary below is not to be considered part of the above Progress Note.
[2017-09-09] MEDS: ACETAMINOPHEN 325 MG TABLET PO SCH ×2 (08:33→12:30)
[2017-09-09] MEDS: DOCUSATE SODIUM 100 MG CAPSULE PO SCH (08:34)
[2017-09-09] MEDS: ASPIRIN *EC* 81 MG TABLET PO SCH (08:34)
[2017-09-09] MEDS: TRAMADOL 50 MG TABLET PO PRN ×2 (08:34→10:02)
--- NOTE | 2017-09-09 08:38 | Discharge Summary ---
Orthopedic Discharge Info Date of admission: 09/08/17 06:46 Anticipated date of discharge: 09/09/17 Primary care physician: Heena Calderon MD Attending Physician: Porfirio Baer MD Consults: 09/08/17 06:54 Consult to Anesthesiology [CONS] Routine Reason For Exam: Preoperative Assessment 09/08/17 12:10 Case Management Consult [CONS] Routine Reason For Exam: Discharge Planning DME-Walker [CONS] Routine Height: 5 ft 6 in Weight: 86 kg Total Joint Outpatient Therapy [CONS] Routine Comment: Remove dressing in 2 weeks - Discharge Diagnosis (1) Primary osteoarthritis of right hip Status: Acute - Procedures Procedures: Procedures Replacement of Left Knee Joint with Synthetic Substitute, Cemented, Open Approach (06/25/17) Robotic Assisted Procedure of Lower Extremity, Open Approach (06/25/17) Rt MORGAN 09/08/17. - Laboratory Result Diagrams: 09/09/17 04:02 09/09/17 04:02 Laboratory: Abnormal lab results 09/09/17 09/09/17 Range/Units 04:02 04:02 Hgb 11.1 L (12-16) GM/DL Creatinine 0.5 L (0.7-1.2) mg/dL Glucose 125 H (65-110) MG/DL H & H 09/09/17 Range/Units 04:02 Hgb 11.1 L (12-16) GM/DL Orthopedic Discharge HPI - HPI Comments This patient was admitted for elective surgical tx of end stage degenerative joint disease that failed to respond to conservative treatment. Further details of this is found in the admission H&P. Orthopedic Hospital Course Hospital course: 09/09/17 08:39 After appropriate preoperative clearance and signing of operative consent, the patient was given IV antibiotics, according to orthopedic protocol. The patient was taken to the operating room and underwent elective right total hip arthroplasty. Following surgery, antibiotics were discontinued less than 24 hours according to joint protocol. Aspirin was initiated and SCDs added for DVT prevention. The dressing was clean, dry, and intact. Pain control was obtained via multimodal approach. Bowel motivation addressed with scheduled and PRN medications. Early mobilization was initiated through PT services. Discharge arrangements made by a collaborative effort between the patient and Case Management. Pt had some bradycardia with HR in the 40's-50's, but she was not symptomatic. Lopressor was held but will be resumed on discharge. Dressing was dry. Hgb 11.1 after surgery. Pt encouraged to f/u with PCP 1 week after surgery for post surgical check of her VS and other medical conditions. Follow-up is scheduled in 2-3 weeks. Discharge instructions given by orthopedic providers and nursing staff at discharge. Discharge condition was good. Care extended to > 2 midnight stays?: No Discharge Plan - Med Rec/Dispo Referrals/Follow Up: Heena Calderon MD [Primary Care Provider] - 09/16/17 10:15 am Roderick Viera PA [Physician Crystalizer Operator] - 09/28/17 9:45 am Philippe Instructions: [facility] Postop Instructions Additional Instructions: [facility] ON 09/11/2017 AT 2:45PM FOR PHYSICAL THERAPY EVAL. PHONE [phone] OPT[facility] 3. Prescriptions: New Acetaminophen [Tylenol] 650 mg PO QID tab Aspirin *EC* [Ecotrin] 81 mg PO BID tab Docusate Sodium [Colace] 100 mg PO BID cap Milk of Magnesia [Mom] 30 ml PO DAILY udc Tramadol [Ultram] 50 - 100 mg PO Q6H PRN tab PRN Reason: Pain PEG 3350 17gm PACKET [Miralax] 17 gm PO DAILY packet Continue Cartilage/Collagen/Bor/Hyalur [Joint Health Tablet] 1 each PO DAILY [place]-3/Dha/Epa/Fish Oil [Fish Oil 1,000 mg Softgel] 1 each PO DAILY Lactobacillus Acidophilus [Probiotic] 1 each PO DAILY Fluticasone Nasal [place] [Flonase] 1 spray EA NOSTRIL DAILY Cetirizine HCl [Zyrtec] 1 tab PO DAILY Multivitamin [Multivitamins] 1 each PO DAILY Atorvastatin Calcium 10 mg PO HS Cholecalciferol (Vitamin D3) [Vitamin D3] 1 tab PO DAILY Ibuprofen [Advil] 200 - 600 mg PO Q4H PRN PRN Reason: Pain Metoprolol Succinate 25 mg PO DAILY Pantoprazole Tab [Protonix Tab] 40 mg PO PRN PRN PRN Reason: Indigestion Discontinued Acetaminophen [Tylenol] 650 mg PO QID PRN PRN Reason: Pain Aspirin *EC* [Ecotrin] 81 mg PO DAILY - Disposition 01 Discharged Home, Self-Care - Dismissal Complete Discharge Instructions are:: Complete
[2017-09-09] MEDS ORDERED: POLYETHYL GLYCOL 3350 17gm PACKET PO SCH (09:00)
[2017-09-09] MEDS ORDERED: CETIRIZINE 10 MG TABLET PO SCH (09:00)
[2017-09-09] MEDS ORDERED: OMEGA-3 ACID ESTERS 1 GM CAPSULE PO SCH (09:00)
[2017-09-09] MEDS ORDERED: SENNOSIDES 8.6 MG TABLET PO PRN (11:33)
[2017-09-09 11:47] VITALS: BP 134/62; PULSE 55; TEMP 96.8; O2SAT 97
[2017-09-10] MEDS ORDERED: BISACODYL 10 MG SUPPOSITORY RECTALLY SCH (20:00)
== END 2017-09-09 13:26 | disposition home or self-care (01) | DRG 470 ==
LOC: NMC.PERIOP 06:46 → SRG 12:02
PROVIDERS: ADMIT Orthopaedic Surgery; ATTEND Orthopaedic Surgery